=== PATIENT | female | born 1955 | race Caucasian/White ===

== ENCOUNTER → 2018-07-15 | Outpatient (CLI) | payer OTHER ==
[~2018-07-15] MED LIST: ALBU8.5H IH; GUAI120L3 PO; LOSA-54 PO; OLME1TAB54 PO; ROBC PO
[2018-07-15 10:40] LABS: PLATELET COUNT, AUTOMATED 242 K/uL (150-450)
== END ==
LOC: LAB 10:05
PROVIDERS: ATTEND Nurse Practitioner Family
DX: I10 Essential (primary) hypertension (principal); E78.5 Hyperlipidemia, unspecified
CPT/HCPCS: 36415; 82040; 82247; 82310; 82374; 82435; 82465; 82565; 82947; 83718; 84075; 84132; 84155; 84295; 84443; 84450; 84460; 84478; 84520; 85025

== ENCOUNTER → 2018-12-23 | Outpatient (CLI) | payer OTHER ==
--- NOTE | 2018-12-26 10:18 | RADIOLOGY IMAGING REPORT ---
[place]AC[place] [facility] [place] NAME: MANISH BELTRAN : [id number] MR: [id number]: [id number] EXAM DATE: [id number] ORDERING PHYSICIAN: FITZ VILLELA TECHNOLOGIST: Lisa Marte PROCEDURE:BILATERAL DIGITAL SCREENING MAMMOGRAM WITH CAD ASSISTED INTERPRETATION & 3D TOMOSYNTHESIS COMPARISON:Prior mammograms 09/10/17, 09/09/16, 12/12/14, 11/02/13, 08/29/12. INDICATIONS:screening FINDINGS: The breasts are heterogeneously dense which can obscure small masses. The parenchymal pattern has remained stable allowing for difference in mammographic technique & patient positioning. The area of postsurgical scaring and architectural distortion in the upper outer quadrant of the Left breast from prior lumpectomy is again seen. DIAGNOSTIC CATEGORY 2--BENIGN FINDING. RECOMMENDATIONS: ROUTINE MAMMOGRAM AND CLINICAL EVALUATION. IMPRESSION: BIRADS 2: Benign finding. Area of postsurgical scaring and architectural distortion in the posterior 1/3 upper outer quadrant of the Left breast is again seen and remains stable. Dictated by: Trinh Jones M.D. on 12/23/2018 at 15:16 Transcribed by: ROLAND on 12/23/2018 at 15:25 Approved by: Trinh Jones M.D. on 12/26/2018 at 10:17 [facility]
== END ==
LOC: MAMO 00:26
PROVIDERS: ATTEND Nurse Practitioner Family
DX: Z12.31 Encounter for screening mammogram for malignant neoplasm of breast (principal)
CPT/HCPCS: 77063; 77067